=== PATIENT | male | born 1960 | race Caucasian/White ===

== ENCOUNTER 2022-06-08 02:25 | Inpatient (IN) | payer OTHER ==
[2022-06-08 02:39] VITALS: BMI 27.2
[2022-06-08] MEDS ORDERED: methylPREDNISolone NA SUCC 125 MG/2 ML VIAL IVPUSH ONE (03:04)
[2022-06-08] MEDS ORDERED: SODIUM CHLORIDE 2,585 ML IV ONE (03:07)
[2022-06-08] MEDS: ALBUTEROL SO4 2.5/IPRATROPIUM 0.5 INH SOL 3 ML VIAL.NEB. NEB SCH ×8 (03:15→23:15)
[2022-06-08] MEDS ORDERED: methylPREDNISolone NA SUCC 125 MG/2 ML VIAL ONE (03:20)
[2022-06-08 04:28] LABS: VENOUS BASE EXCESS 4.7 mmol/L (-2-2); VENOUS O2 SATURATION 54.7 % (70-80); VENOUS PCO2 67.7 mmHg (38-52); VENOUS PH 7.312 (7.310-7.410)
[2022-06-08 04:31] LABS: BASO % 0.2 % (0-2.0); HEMATOCRIT 37.6 % (35.4-49); HEMOGLOBIN 12.4 GM/dL (11.7-16.9); LYMPH % 15.4 % (8-40); MCH 29.1 pg (25.7-33.7); MEAN CELL VOLUME 88.2 fl (80-96); MEAN PLT VOLUME 6.6 fl (7.5-11.1); MONO % 6.9 % (3.8-10.2); NEUT % 77.5 % (42.8-82.8); PLATELET COUNT 231 10^3/uL (134-434); RBC 4.26 M/mm3 (4.00-5.60); WHITE BLOOD COUNT 8.2 K/mm3 (4.0-10.0)
[2022-06-08 04:36] LABS: INR 0.97 (0.83-1.09); PROTHROMBIN TIME (PATIENT) 11.2 SEC (9.7-13.0)
[2022-06-08 04:53] LABS: CALCIUM 8.5 mg/dL (8.5-10.1)
[2022-06-08 04:54] LABS: BLOOD UREA NITROGEN 15.8 mg/dL (7-18); MAGNESIUM 1.8 mg/dL (1.8-2.4)
[2022-06-08 04:56] LABS: CREATININE 0.8 mg/dL (0.55-1.3)
[2022-06-08 04:58] LABS: BILIRUBIN,TOTAL 0.5 mg/dL (0.2-1); TOT PROT 5.8 g/dl (6.4-8.2)
[2022-06-08 05:03] LABS: N-TERMINAL BNP 206.4 pg/ml (5-125)
[2022-06-08] MEDS ORDERED: CEFTRIAXONE 1,000 MG in DEXTROSE 5%-WATER - 50 ML IVPB ONE (05:55)
[2022-06-08] MEDS ORDERED: AZITHROMYCIN IVPB 500 MG in DEXTROSE 5%-WATER - 250 ML IVPB ONE (05:55)
[2022-06-08] MEDS: ALBUTEROL SO4 0.083% IH SOL 2.5 MG/3 ML VIAL.NEB. NEB SCH ×2 (06:32→06:39)
[2022-06-08] MEDS ORDERED: CEFTRIAXONE 1 GM/50 ML BAG ONE (06:33)
[2022-06-08 06:39] LABS: ARTERIAL BLD GAS O2 SATURATION 94.7 % (95-98); ARTERIAL BLOOD GAS BASE EXCESS 2.4 mmol/L (-2-2); ARTERIAL BLOOD GAS PO2 75.7 mmHg (80-100); ARTERIAL BLOOD GAS pH 7.376 (7.350-7.450)
[2022-06-08 06:40] LABS: ALLENS TEST POSITIVE; VENT MODE S/T; VENT RATE 14
[2022-06-08] MEDS ORDERED: AZITHROMYCIN IVPB 500 MG/250 ML BAG IVPB ONE (07:18)
[2022-06-08] MEDS ORDERED: SODIUM CHLORIDE 1,000 ML IV SCH (07:45)
[2022-06-08 08:35] LABS: PHOSPHOROUS 3.4 mg/dL (2.5-4.9)
[2022-06-08] MEDS ORDERED: PANTOPRAZOLE SODIUM 40 MG VIAL IVPUSH SCH (10:00)
[2022-06-08] MEDS ORDERED: MUPIROCIN 2% TOPICAL OINTMENT FOR DECOLONIZATION NS SCH ×3 (10:00→22:00)
[2022-06-08] MEDS ORDERED: busPIRone HCL 5 MG TABLET PO SCH (10:15)
[2022-06-08] MEDS ORDERED: PANTOPRAZOLE 20 MG TABLET PO SCH (10:30)
[2022-06-08] MEDS ORDERED: metoPROLOL SUCCINATE 25 MG TAB.SR.24H (FP) PO SCH (10:30)
[2022-06-08] MEDS ORDERED: DIVALPROEX SODIUM 500 MG TABLET E.C. PO SCH (10:30)
[2022-06-08] MEDS ORDERED: DICLOFENAC SODIUM TP SCH (10:30)
[2022-06-08] MEDS ORDERED: GABAPENTIN 300 MG CAPSULE PO SCH (10:30)
[2022-06-08] MEDS ORDERED: PATIENT'S OWN MEDICATION (NON-FORMULARY) (Levothyroxine Sodium [Levothyroxine] 137 MCG Cap PO SCH (10:30)
[2022-06-08] MEDS ORDERED: LEVOTHYROXINE 25 MCG, LEVOTHYROXINE 112 MCG PO SCH (10:45)
[2022-06-08] MEDS: cloZAPine 100 MG TABLET PO SCH ×3 (11:10→22:10)
[2022-06-08] MEDS: clonazePAM 0.5 MG TABLET PO PRN ×3 (11:52→19:48)
[2022-06-08] MEDS: methylPREDNISolone NA SUCC 40 MG/1 ML VIAL IVPUSH SCH ×2 (11:53→17:39)
[2022-06-08] MEDS ORDERED: BUDESONIDE/FORMETEROL FUMARATE 160/4.5 mcg INHALER IH SCH (18:00)
[2022-06-08] MEDS ORDERED: IPRATROPIUM BR 0.02% 0.5 MG/2.5 ML VIAL.NEB. NEB SCH (19:15)
[2022-06-08] MEDS ORDERED: MONTELUKAST NA 5 MG TAB.CHEW PO SCH (22:00)
[2022-06-08] MEDS ORDERED: ATORVASTATIN CA 80 MG TABLET (FP) PO SCH (22:00)
[2022-06-08] MEDS ORDERED: FLUTICASONE/SALMETEROL 100 MCG/50 MCG DISKUS IH SCH (22:00)
[2022-06-08] MEDS ORDERED: CHLORHEXIDINE GLUCONATE 4% CLEANSER FOR DECOLONIZATION TP SCH ×3 (22:00)
[2022-06-08] MEDS: GABAPENTIN 300 MG CAPSULE PO SCH (22:06)
[2022-06-08] MEDS: DIVALPROEX SODIUM 500 MG TABLET E.C. PO SCH (22:07)
[2022-06-08] MEDS: ATORVASTATIN CA 80 MG TABLET (FP) PO SCH (22:07)
[2022-06-08] MEDS: BUDESONIDE/FORMETEROL FUMARATE 160/4.5 mcg INHALER IH SCH (22:07)
[2022-06-08] MEDS: metoPROLOL SUCCINATE 25 MG TAB.SR.24H (FP) PO SCH (22:07)
[2022-06-08] MEDS: MONTELUKAST NA 5 MG TAB.CHEW PO SCH (22:07)
[2022-06-09] MEDS: clonazePAM 0.5 MG TABLET PO PRN ×3 (00:03→22:56)
[2022-06-09] MEDS: methylPREDNISolone NA SUCC 40 MG/1 ML VIAL IVPUSH SCH ×3 (01:21→17:46)
[2022-06-09] MEDS: ALBUTEROL SO4 2.5/IPRATROPIUM 0.5 INH SOL 3 ML VIAL.NEB. NEB SCH ×5 (04:30→20:40)
[2022-06-09] MEDS: LEVOTHYROXINE 25 MCG, LEVOTHYROXINE 112 MCG PO SCH (06:28)
[2022-06-09] MEDS: GABAPENTIN 300 MG CAPSULE PO SCH ×2 (09:04→21:37)
[2022-06-09] MEDS: metoPROLOL SUCCINATE 25 MG TAB.SR.24H (FP) PO SCH ×2 (09:04→21:37)
[2022-06-09] MEDS: DIVALPROEX SODIUM 500 MG TABLET E.C. PO SCH (09:05)
[2022-06-09] MEDS: busPIRone HCL 5 MG TABLET PO SCH (09:09)
[2022-06-09] MEDS: ENOXAPARIN NA (PORCINE) 40 MG/0.4 ML DISP.SYRIN SQ SCH (09:09)
[2022-06-09] MEDS: PANTOPRAZOLE 40 MG TABLET PO SCH (09:09)
[2022-06-09] MEDS: BUDESONIDE/FORMETEROL FUMARATE 160/4.5 mcg INHALER IH SCH ×2 (09:26→21:39)
[2022-06-09 09:56] LABS: HEMATOCRIT 40.4 % (35.4-49); MCH 28.4 pg (25.7-33.7); MCHC 32.1 g/dl (32.0-35.9); MEAN CELL VOLUME 88.3 fl (80-96); MEAN PLT VOLUME 7.5 fl (7.5-11.1); PLATELET COUNT 277 10^3/uL (134-434); RBC 4.57 M/mm3 (4.00-5.60); RDW 17.1 % (11.9-15.9); WHITE BLOOD COUNT 11.8 K/mm3 (4.0-10.0)
[2022-06-09] MEDS: AZITHROMYCIN IVPB 250 MG in DEXTROSE 5%-WATER - 250 ML IVPB SCH (09:58)
[2022-06-09] MEDS ORDERED: DICLOFENAC SODIUM 1 GM TP SCH (10:00)
[2022-06-09] MEDS ORDERED: AZITHROMYCIN IVPB 250 MG in DEXTROSE 5%-WATER - 250 ML IVPB SCH (10:00)
[2022-06-09 10:22] LABS: CALCIUM 9.2 mg/dL (8.5-10.1)
[2022-06-09 10:23] LABS: BLOOD UREA NITROGEN 24.4 mg/dL (7-18)
[2022-06-09 10:26] LABS: CREATININE 0.7 mg/dL (0.55-1.3)
[2022-06-09 10:27] LABS: BILIRUBIN,TOTAL 0.6 mg/dL (0.2-1); TOT PROT 6.2 g/dl (6.4-8.2)
[2022-06-09 10:49] LABS: ANISOCYTOSIS 0; HELMET CELLS 0; HOWELL-JOLLY BODIES 0; MACROCYTOSIS 0; OVALOCYTE 0; ROULEAU 0; SICKELED CELLS 0; TARGET CELLS 0; TEAR DROP CELLS 0; TOXIC GRANULATION 0
[2022-06-09] MEDS: LORazepam 2 MG/ML SDV VIAL IM PRN (11:47)
[2022-06-09 12:35] LABS: PHOSPHOROUS 3.2 mg/dL (2.5-4.9)
[2022-06-09] MEDS: ATORVASTATIN CA 80 MG TABLET (FP) PO SCH (21:37)
[2022-06-09] MEDS: MELATONIN 5 MG TABLETS PO PRN (21:37)
[2022-06-09] MEDS: cloZAPine 100 MG TABLET PO SCH (21:38)
[2022-06-09] MEDS: MONTELUKAST NA 5 MG TAB.CHEW PO SCH (21:38)
[2022-06-10] MEDS: ALBUTEROL SO4 2.5/IPRATROPIUM 0.5 INH SOL 3 ML VIAL.NEB. NEB SCH ×6 (01:00→20:00)
[2022-06-10] MEDS: methylPREDNISolone NA SUCC 40 MG/1 ML VIAL IVPUSH SCH ×3 (01:26→17:45)
[2022-06-10] MEDS: LEVOTHYROXINE 25 MCG, LEVOTHYROXINE 112 MCG PO SCH (06:05)
[2022-06-10] MEDS: ENOXAPARIN NA (PORCINE) 40 MG/0.4 ML DISP.SYRIN SQ SCH (09:04)
[2022-06-10] MEDS: busPIRone HCL 5 MG TABLET PO SCH (09:06)
[2022-06-10] MEDS: metoPROLOL SUCCINATE 25 MG TAB.SR.24H (FP) PO SCH ×2 (09:06→21:25)
[2022-06-10] MEDS: GABAPENTIN 300 MG CAPSULE PO SCH ×2 (09:06→21:26)
[2022-06-10] MEDS: PANTOPRAZOLE 40 MG TABLET PO SCH (09:06)
[2022-06-10] MEDS: TIOTROPIUM BROMIDE 2.5 MCG (SPIRIVA) RESPIMAT INHALER IH SCH (09:07)
[2022-06-10] MEDS: BUDESONIDE/FORMETEROL FUMARATE 160/4.5 mcg INHALER IH SCH ×2 (09:07→21:26)
[2022-06-10] MEDS: TAMSULOSIN HCL 0.4 MG CAP PO SCH (09:17)
[2022-06-10] MEDS: LACTULOSE 20 GM/30 ML UDC (FOR ORAL USE ONLY) PO SCH (09:17)
[2022-06-10] MEDS: AZITHROMYCIN IVPB 250 MG in DEXTROSE 5%-WATER - 250 ML IVPB SCH (10:09)
[2022-06-10] MEDS ORDERED: ALBUTEROL SO4 2.5/IPRATROPIUM 0.5 INH SOL 3 ML VIAL.NEB. NEB PRN (10:11)
[2022-06-10] MEDS: clonazePAM 0.5 MG TABLET PO PRN ×2 (10:21→21:26)
[2022-06-10 11:48] LABS: HEMATOCRIT 36.5 % (35.4-49); MCH 28.8 pg (25.7-33.7); MCHC 32.8 g/dl (32.0-35.9); MEAN CELL VOLUME 87.9 fl (80-96); PLATELET COUNT 274 10^3/uL (134-434); RBC 4.16 M/mm3 (4.00-5.60); RDW 16.9 % (11.9-15.9); WHITE BLOOD COUNT 13.2 K/mm3 (4.0-10.0)
[2022-06-10 12:15] LABS: CALCIUM 8.9 mg/dL (8.5-10.1)
[2022-06-10 12:16] LABS: BLOOD UREA NITROGEN 34.4 mg/dL (7-18)
[2022-06-10 12:19] LABS: CREATININE 0.8 mg/dL (0.55-1.3)
[2022-06-10 12:43] LABS: ANISOCYTOSIS 0; MACROCYTOSIS 0; OVALOCYTE 2+
[2022-06-10] MEDS: INSULIN SLIDING SCALE (NOVOLOG) 1 VIAL SQ SCH (16:56)
[2022-06-10] MEDS: LORazepam 2 MG/ML SDV VIAL IM PRN (17:52)
[2022-06-10] MEDS: cloZAPine 100 MG TABLET PO SCH (21:25)
[2022-06-10] MEDS: MELATONIN 5 MG TABLETS PO PRN (21:25)
[2022-06-10] MEDS: ATORVASTATIN CA 80 MG TABLET (FP) PO SCH (21:26)
[2022-06-10] MEDS: VALPROATE SODIUM 250 MG/5 ML UNIT DOSE CUP PO SCH (21:26)
[2022-06-10] MEDS: MONTELUKAST NA 5 MG TAB.CHEW PO SCH (22:11)
[2022-06-11] MEDS: ALBUTEROL SO4 2.5/IPRATROPIUM 0.5 INH SOL 3 ML VIAL.NEB. NEB SCH ×7 (00:04→23:59)
[2022-06-11] MEDS: methylPREDNISolone NA SUCC 40 MG/1 ML VIAL IVPUSH SCH ×3 (01:23→18:28)
[2022-06-11] MEDS: INSULIN SLIDING SCALE (NOVOLOG) 1 VIAL SQ SCH ×3 (06:18→17:29)
[2022-06-11] MEDS: LEVOTHYROXINE 25 MCG, LEVOTHYROXINE 112 MCG PO SCH (06:18)
[2022-06-11] MEDS: clonazePAM 0.5 MG TABLET PO PRN (09:52)
[2022-06-11] MEDS: busPIRone HCL 5 MG TABLET PO SCH (09:53)
[2022-06-11] MEDS: TAMSULOSIN HCL 0.4 MG CAP PO SCH (09:53)
[2022-06-11] MEDS: VALPROATE SODIUM 250 MG/5 ML UNIT DOSE CUP PO SCH ×2 (09:53→21:53)
[2022-06-11] MEDS: LACTULOSE 20 GM/30 ML UDC (FOR ORAL USE ONLY) PO SCH (09:53)
[2022-06-11] MEDS: ENOXAPARIN NA (PORCINE) 40 MG/0.4 ML DISP.SYRIN SQ SCH (09:54)
[2022-06-11] MEDS: GABAPENTIN 300 MG CAPSULE PO SCH ×2 (09:54→21:54)
[2022-06-11] MEDS: PANTOPRAZOLE 40 MG TABLET PO SCH (09:54)
[2022-06-11] MEDS: LORazepam 2 MG/ML SDV VIAL IM PRN (09:55)
[2022-06-11] MEDS: metoPROLOL SUCCINATE 25 MG TAB.SR.24H (FP) PO SCH ×2 (09:55→21:54)
[2022-06-11] MEDS: BUDESONIDE/FORMETEROL FUMARATE 160/4.5 mcg INHALER IH SCH ×2 (10:02→21:54)
[2022-06-11] MEDS: TIOTROPIUM BROMIDE 2.5 MCG (SPIRIVA) RESPIMAT INHALER IH SCH (10:09)
[2022-06-11 10:46] LABS: HEMATOCRIT 37.8 % (35.4-49); MCH 28.2 pg (25.7-33.7); MCHC 31.7 g/dl (32.0-35.9); MEAN CELL VOLUME 88.7 fl (80-96); MEAN PLT VOLUME 7.5 fl (7.5-11.1); PLATELET COUNT 307 10^3/uL (134-434); RBC 4.26 M/mm3 (4.00-5.60); RDW 17.2 % (11.9-15.9); WHITE BLOOD COUNT 13.2 K/mm3 (4.0-10.0)
[2022-06-11 11:07] LABS: BLOOD UREA NITROGEN 29.8 mg/dL (7-18)
[2022-06-11 11:08] LABS: CALCIUM 8.9 mg/dL (8.5-10.1)
[2022-06-11 11:10] LABS: CREATININE 0.7 mg/dL (0.55-1.3)
[2022-06-11] MEDS: AZITHROMYCIN IVPB 250 MG in DEXTROSE 5%-WATER - 250 ML IVPB SCH (11:58)
[2022-06-11] MEDS: cloZAPine 100 MG TABLET PO SCH (21:53)
[2022-06-11] MEDS: MONTELUKAST NA 5 MG TAB.CHEW PO SCH (21:53)
[2022-06-11] MEDS: ATORVASTATIN CA 80 MG TABLET (FP) PO SCH (21:54)
[2022-06-11] MEDS: MELATONIN 5 MG TABLETS PO PRN (22:57)
[2022-06-12] MEDS: LORazepam 2 MG/ML SDV VIAL IM PRN (02:41)
[2022-06-12] MEDS: methylPREDNISolone NA SUCC 40 MG/1 ML VIAL IVPUSH SCH ×3 (02:43→21:12)
[2022-06-12] MEDS: ALBUTEROL SO4 2.5/IPRATROPIUM 0.5 INH SOL 3 ML VIAL.NEB. NEB SCH ×6 (04:14→23:56)
[2022-06-12] MEDS: LEVOTHYROXINE 25 MCG, LEVOTHYROXINE 112 MCG PO SCH (06:37)
[2022-06-12] MEDS: INSULIN SLIDING SCALE (NOVOLOG) 1 VIAL SQ SCH ×3 (06:43→16:53)
[2022-06-12] MEDS: LACTULOSE 20 GM/30 ML UDC (FOR ORAL USE ONLY) PO SCH (09:27)
[2022-06-12] MEDS: VALPROATE SODIUM 250 MG/5 ML UNIT DOSE CUP PO SCH ×2 (09:27→21:11)
[2022-06-12] MEDS: busPIRone HCL 5 MG TABLET PO SCH (09:29)
[2022-06-12] MEDS: PANTOPRAZOLE 40 MG TABLET PO SCH (09:29)
[2022-06-12] MEDS: ENOXAPARIN NA (PORCINE) 40 MG/0.4 ML DISP.SYRIN SQ SCH (09:30)
[2022-06-12] MEDS: TAMSULOSIN HCL 0.4 MG CAP PO SCH (09:30)
[2022-06-12] MEDS: metoPROLOL SUCCINATE 25 MG TAB.SR.24H (FP) PO SCH ×2 (09:30→21:11)
[2022-06-12] MEDS: GABAPENTIN 300 MG CAPSULE PO SCH ×2 (09:30→21:11)
[2022-06-12] MEDS: AZITHROMYCIN IVPB 250 MG in DEXTROSE 5%-WATER - 250 ML IVPB SCH (09:34)
[2022-06-12] MEDS: BUDESONIDE/FORMETEROL FUMARATE 160/4.5 mcg INHALER IH SCH ×2 (09:39→21:12)
[2022-06-12] MEDS: TIOTROPIUM BROMIDE 2.5 MCG (SPIRIVA) RESPIMAT INHALER IH SCH (09:40)
[2022-06-12] MEDS ORDERED: LORazepam 2 MG/ML SDV VIAL IM PRN ×2 (19:31→19:38)
[2022-06-12] MEDS ORDERED: clonazePAM 0.5 MG TABLET PO PRN (19:32)
[2022-06-12] MEDS: MELATONIN 5 MG TABLETS PO PRN (21:11)
[2022-06-12] MEDS: clonazePAM 0.5 MG TABLET PO PRN (21:11)
[2022-06-12] MEDS: cloZAPine 100 MG TABLET PO SCH (21:12)
[2022-06-12] MEDS: ATORVASTATIN CA 80 MG TABLET (FP) PO SCH (21:12)
[2022-06-12] MEDS: MONTELUKAST NA 5 MG TAB.CHEW PO SCH (21:12)
[2022-06-13] MEDS: ALBUTEROL SO4 2.5/IPRATROPIUM 0.5 INH SOL 3 ML VIAL.NEB. NEB SCH ×5 (04:14→20:35)
[2022-06-13] MEDS: LEVOTHYROXINE 25 MCG, LEVOTHYROXINE 112 MCG PO SCH (06:12)
[2022-06-13] MEDS: INSULIN SLIDING SCALE (NOVOLOG) 1 VIAL SQ SCH ×3 (06:22→16:57)
[2022-06-13] MEDS: busPIRone HCL 5 MG TABLET PO SCH (09:44)
[2022-06-13] MEDS: TAMSULOSIN HCL 0.4 MG CAP PO SCH (09:44)
[2022-06-13] MEDS: PANTOPRAZOLE 40 MG TABLET PO SCH (09:44)
[2022-06-13] MEDS: GABAPENTIN 300 MG CAPSULE PO SCH ×2 (09:44→21:14)
[2022-06-13] MEDS: metoPROLOL SUCCINATE 25 MG TAB.SR.24H (FP) PO SCH ×2 (09:44→21:14)
[2022-06-13] MEDS: LACTULOSE 20 GM/30 ML UDC (FOR ORAL USE ONLY) PO SCH (09:45)
[2022-06-13] MEDS: ENOXAPARIN NA (PORCINE) 40 MG/0.4 ML DISP.SYRIN SQ SCH (09:45)
[2022-06-13] MEDS: VALPROATE SODIUM 250 MG/5 ML UNIT DOSE CUP PO SCH ×2 (09:45→21:15)
[2022-06-13] MEDS: BUDESONIDE/FORMETEROL FUMARATE 160/4.5 mcg INHALER IH SCH ×2 (09:46→21:25)
[2022-06-13] MEDS: methylPREDNISolone NA SUCC 40 MG/1 ML VIAL IVPUSH SCH ×2 (09:46→21:15)
[2022-06-13] MEDS: TIOTROPIUM BROMIDE 2.5 MCG (SPIRIVA) RESPIMAT INHALER IH SCH (09:58)
[2022-06-13 10:09] LABS: HEMATOCRIT 38.9 % (35.4-49); HEMOGLOBIN 12.6 GM/dL (11.7-16.9); MCH 28.5 pg (25.7-33.7); MCHC 32.5 g/dl (32.0-35.9); MEAN CELL VOLUME 87.7 fl (80-96); MEAN PLT VOLUME 7.5 fl (7.5-11.1); PLATELET COUNT 337 10^3/uL (134-434); RBC 4.44 M/mm3 (4.00-5.60); RDW 16.4 % (11.9-15.9); WHITE BLOOD COUNT 10.1 K/mm3 (4.0-10.0)
[2022-06-13 10:29] LABS: ALBUMIN 2.6 g/dl (3.4-5.0); BLOOD UREA NITROGEN 24.7 mg/dL (7-18); CALCIUM 8.9 mg/dL (8.5-10.1)
[2022-06-13 10:32] LABS: CREATININE 0.6 mg/dL (0.55-1.3)
[2022-06-13 10:34] LABS: BILIRUBIN,TOTAL 0.4 mg/dL (0.2-1)
[2022-06-13] MEDS: clonazePAM 0.5 MG TABLET PO PRN ×2 (13:24→21:14)
[2022-06-13 13:45] LABS: ANISOCYTOSIS 0; MACROCYTOSIS 0; OVALOCYTE 2+
[2022-06-13] MEDS: MELATONIN 5 MG TABLETS PO PRN (21:14)
[2022-06-13] MEDS: ATORVASTATIN CA 80 MG TABLET (FP) PO SCH (21:14)
[2022-06-13] MEDS: MONTELUKAST NA 5 MG TAB.CHEW PO SCH (21:14)
[2022-06-13] MEDS: cloZAPine 100 MG TABLET PO SCH (21:16)
[2022-06-14] MEDS: ALBUTEROL SO4 2.5/IPRATROPIUM 0.5 INH SOL 3 ML VIAL.NEB. NEB SCH ×6 (00:02→20:29)
[2022-06-14] MEDS: BUDESONIDE/FORMETEROL FUMARATE 160/4.5 mcg INHALER IH SCH ×3 (00:27→21:38)
[2022-06-14] MEDS: LEVOTHYROXINE 25 MCG, LEVOTHYROXINE 112 MCG PO SCH (06:09)
[2022-06-14] MEDS: INSULIN SLIDING SCALE (NOVOLOG) 1 VIAL SQ SCH ×3 (06:11→16:47)
[2022-06-14] MEDS: ENOXAPARIN NA (PORCINE) 40 MG/0.4 ML DISP.SYRIN SQ SCH (09:19)
[2022-06-14] MEDS: VALPROATE SODIUM 250 MG/5 ML UNIT DOSE CUP PO SCH ×2 (09:20→21:40)
[2022-06-14] MEDS: LACTULOSE 20 GM/30 ML UDC (FOR ORAL USE ONLY) PO SCH (09:20)
[2022-06-14] MEDS: busPIRone HCL 5 MG TABLET PO SCH (09:20)
[2022-06-14] MEDS: metoPROLOL SUCCINATE 25 MG TAB.SR.24H (FP) PO SCH ×2 (09:21→21:39)
[2022-06-14] MEDS: clonazePAM 0.5 MG TABLET PO PRN (09:21)
[2022-06-14] MEDS: PANTOPRAZOLE 40 MG TABLET PO SCH (09:21)
[2022-06-14] MEDS: TAMSULOSIN HCL 0.4 MG CAP PO SCH (09:21)
[2022-06-14] MEDS: methylPREDNISolone NA SUCC 40 MG/1 ML VIAL IVPUSH SCH (09:21)
[2022-06-14] MEDS: GABAPENTIN 300 MG CAPSULE PO SCH ×2 (09:21→21:39)
[2022-06-14] MEDS: TIOTROPIUM BROMIDE 2.5 MCG (SPIRIVA) RESPIMAT INHALER IH SCH (09:22)
[2022-06-14] MEDS: ATORVASTATIN CA 80 MG TABLET (FP) PO SCH (21:39)
[2022-06-14] MEDS: MONTELUKAST NA 5 MG TAB.CHEW PO SCH (21:39)
[2022-06-14] MEDS: cloZAPine 100 MG TABLET PO SCH (21:44)
[2022-06-15] MEDS: ALBUTEROL SO4 2.5/IPRATROPIUM 0.5 INH SOL 3 ML VIAL.NEB. NEB SCH ×6 (00:30→20:03)
[2022-06-15] MEDS: LEVOTHYROXINE 25 MCG, LEVOTHYROXINE 112 MCG PO SCH (06:26)
[2022-06-15] MEDS: INSULIN SLIDING SCALE (NOVOLOG) 1 VIAL SQ SCH ×3 (06:29→16:52)
[2022-06-15] MEDS: VALPROATE SODIUM 250 MG/5 ML UNIT DOSE CUP PO SCH ×2 (09:08→21:10)
[2022-06-15] MEDS: ENOXAPARIN NA (PORCINE) 40 MG/0.4 ML DISP.SYRIN SQ SCH (09:08)
[2022-06-15] MEDS: LACTULOSE 20 GM/30 ML UDC (FOR ORAL USE ONLY) PO SCH (09:08)
[2022-06-15] MEDS: busPIRone HCL 5 MG TABLET PO SCH (09:09)
[2022-06-15] MEDS: methylPREDNISolone NA SUCC 40 MG/1 ML VIAL IVPUSH SCH (09:09)
[2022-06-15] MEDS: GABAPENTIN 300 MG CAPSULE PO SCH ×2 (09:09→21:10)
[2022-06-15] MEDS: metoPROLOL SUCCINATE 25 MG TAB.SR.24H (FP) PO SCH ×2 (09:10→21:11)
[2022-06-15] MEDS: TIOTROPIUM BROMIDE 2.5 MCG (SPIRIVA) RESPIMAT INHALER IH SCH (09:10)
[2022-06-15] MEDS: PANTOPRAZOLE 40 MG TABLET PO SCH (09:10)
[2022-06-15] MEDS: TAMSULOSIN HCL 0.4 MG CAP PO SCH (09:10)
[2022-06-15] MEDS: BUDESONIDE/FORMETEROL FUMARATE 160/4.5 mcg INHALER IH SCH (09:15)
[2022-06-15] MEDS ORDERED: ACETAMINOPHEN 325 MG TABLET (FP) PO PRN (10:27)
[2022-06-15 14:31] VITALS: RESP 20
[2022-06-15] MEDS: FLUTICASONE/UMECLIDIN/VILANTER(200-62.5-25 TRELEGY ELLIPTA) INAHLER IH SCH (15:15)
[2022-06-15] MEDS: MELATONIN 5 MG TABLETS PO PRN (20:31)
[2022-06-15] MEDS: clonazePAM 0.5 MG TABLET PO PRN (20:31)
[2022-06-15] MEDS: cloZAPine 100 MG TABLET PO SCH (21:09)
[2022-06-15] MEDS: MONTELUKAST NA 5 MG TAB.CHEW PO SCH (21:10)
[2022-06-15] MEDS: ATORVASTATIN CA 80 MG TABLET (FP) PO SCH (21:10)
[2022-06-16] MEDS: ALBUTEROL SO4 2.5/IPRATROPIUM 0.5 INH SOL 3 ML VIAL.NEB. NEB SCH ×5 (00:10→15:31)
[2022-06-16] MEDS: LEVOTHYROXINE 25 MCG, LEVOTHYROXINE 112 MCG PO SCH (06:07)
[2022-06-16] MEDS: INSULIN SLIDING SCALE (NOVOLOG) 1 VIAL SQ SCH ×2 (06:11→12:00)
[2022-06-16] MEDS: methylPREDNISolone NA SUCC 40 MG/1 ML VIAL IVPUSH SCH (09:01)
[2022-06-16] MEDS: VALPROATE SODIUM 250 MG/5 ML UNIT DOSE CUP PO SCH (09:02)
[2022-06-16] MEDS: ENOXAPARIN NA (PORCINE) 40 MG/0.4 ML DISP.SYRIN SQ SCH (09:02)
[2022-06-16] MEDS: PANTOPRAZOLE 40 MG TABLET PO SCH (09:03)
[2022-06-16] MEDS: TAMSULOSIN HCL 0.4 MG CAP PO SCH (09:03)
[2022-06-16] MEDS: metoPROLOL SUCCINATE 25 MG TAB.SR.24H (FP) PO SCH (09:03)
[2022-06-16] MEDS: GABAPENTIN 300 MG CAPSULE PO SCH (09:03)
[2022-06-16] MEDS: LACTULOSE 20 GM/30 ML UDC (FOR ORAL USE ONLY) PO SCH (09:03)
[2022-06-16] MEDS: busPIRone HCL 5 MG TABLET PO SCH (09:03)
[2022-06-16] MEDS: FLUTICASONE/UMECLIDIN/VILANTER(200-62.5-25 TRELEGY ELLIPTA) INAHLER IH SCH (09:11)
[2022-06-16] MEDS: TIOTROPIUM BROMIDE 2.5 MCG (SPIRIVA) RESPIMAT INHALER IH SCH (09:12)
[2022-06-16] MEDS: clonazePAM 0.5 MG TABLET PO PRN (09:38)
[2022-06-16 14:43] VITALS: TEMP 98.3
[2022-06-16 14:50] VITALS: BP 141/62; PULSE 79
== END 2022-06-16 15:00 | DRG 191 ==
LOC: JER 02:25 → JERBED 04:56 → JICU 08:56 → J6S 19:58
PROVIDERS: ADMIT Internal Medicine Pulmonary Disease; ATTEND Internal Medicine
DX: J44.1 Chronic obstructive pulmonary disease with (acute) exacerbation (principal); I45.2 Bifascicular block; J98.11 Atelectasis; F29 Unspecified psychosis not due to a substance or known physiological condition; I10 Essential (primary) hypertension; E03.9 Hypothyroidism, unspecified; E78.5 Hyperlipidemia, unspecified; K21.9 Gastro-esophageal reflux disease without esophagitis; F25.9 Schizoaffective disorder, unspecified
CPT/HCPCS: 0241U-QW; 36415; 36600; 70450-TC; 71045-TC-FY; 71250-TC; 72125-TC; 80048; 80053; 80164; 82140; 82550; 82553; 82803; 82962; 83036; 83605; 83735; 83880; 84100; 84443; 84484; 85025; 85610; 85730; 86850; 86900; 86901; 87040; 87086; 93005; 93010; 93306-TC; 93880-TC; 94010; 94640; 94660; 94761; 97116-GP; 97162-GP; 99291; 99292